=== PATIENT | male | born 1970 | race African-American/Black ===

== ENCOUNTER 2019-04-25 06:52 | Day surgery (SDC) | payer BC ==
[~2019-04-25] VITALS: Ht 175.3 cm; Wt 102.5 kg
[~2019-04-25 06:52] MED LIST: ALLO300T2 MT; AMLO5TAB88 MT; ASPI-1158 MT; CHLO25TA2 MT; LOSA25TA26 MT; METO-396 MT; MINO2.5T2 MT
[2019-04-25] MEDS ORDERED: HEPARIN SODIUM 1,000 UNIT/1ML VIAL IV ONE (08:19)
[2019-04-25] MEDS ORDERED: NICARDIPINE 100MCG/ML 10ML VIAL (CATH LAB) IV ONE (08:19)
[2019-04-25] MEDS ORDERED: NITROGLYCERIN 50MCG/ML 10ML VIAL (CATH LAB) IV ONE (08:19)
[2019-04-25] MEDS ORDERED: MIDAZOLAM HCL 2 MG/2 ML VIAL ONE ×2 (08:47→09:33)
[2019-04-25] MEDS ORDERED: FENTANYL CITRATE/PF 50MCG/ML 2ML VIAL ONE (08:48)
[2019-04-25] MEDS ORDERED: LIDOCAINE HCL 1% 20ML VIAL (Pyxis) INJ ONE (08:48)
[2019-04-25] MEDS ORDERED: IODIXANOL 320MG/ML 100 ML BOTTLE IV ONE (08:48)
[2019-04-25] MEDS ORDERED: CLOP75TA4 MT (09:02)
[2019-04-25] MEDS ORDERED: ATOR20TA MT (09:02)
[2019-04-25] MEDS ORDERED: IOHEXOL-300 100 ML BOTTLE ONE (09:28)
[2019-04-25] MEDS ORDERED: ACETAMINOPHEN 325MG TABLET PO PRN (10:00)
[2019-04-25] MEDS ORDERED: ONDANSETRON HCL 4MG/2ML INJ IV PRN (10:00)
== END 2019-04-25 14:30 | disposition home or self-care (01) ==
LOC: CCL 06:52
PROVIDERS: ATTEND Specialist
DX: I25.10 Atherosclerotic heart disease of native coronary artery without angina pectoris (principal); I11.9 Hypertensive heart disease without heart failure; E78.5 Hyperlipidemia, unspecified; M19.90 Unspecified osteoarthritis, unspecified site; Z79.899 Other long term (current) drug therapy; Z79.82 Long term (current) use of aspirin; Z82.49 Family history of ischemic heart disease and other diseases of the circulatory system; Z83.3 Family history of diabetes mellitus
CPT/HCPCS: 36415; 84132; 85347; 93458; 93571; 99152; 99153; C1769; C1887; C1893; J1644; J2250; J3010; J3490; Q9967; G0500